=== PATIENT | male | born 1990 | race Caucasian/White ===

== ENCOUNTER 2016-12-25 17:48 | Emergency (ER) | payer SELFPAY ==
[~2016-12-25] VITALS: Ht 182.9 cm; Wt 106.0 kg
[~2016-12-25 17:48] MED LIST: ALBU1AER INH; IBUP800T23 PO; MMW SS; PENI500T PO
[2016-12-25 17:52] VITALS: BP 114/78; PULSE 70; RESP 16; TEMP 98.4; O2SAT 96
[2016-12-25] MEDS ORDERED: PRIL20CA9 PO (17:57)
--- NOTE | 2016-12-25 18:21 | PD ---
HPI Chief Complaint: ENT Complaint Time Seen by Provider: 18:20 Travel History International Travel<30 days: No Contact w/Intl Traveler<30days: No Traveled to known affect area: No History of Present Illness HPI 26-year-old male presents to the ED for evaluation of approximately 20 hour history of right ear pain. Onset upon waking today. Patient states that the pain radiates down the neck. He also states that he feels as if the ear is "hot." He endorses headache, similar to previous headaches. Denies vision changes, dizziness, nausea, vomiting. He drove himself to the emergency room today. States that he uses Q-tips daily. 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 SKIN: Warm and dry. HEAD: Normocephalic. Atraumatic. EYES: No scleral icterus. No injection or drainage. PERRLA. EOMI. ENT: Right side tug test positive. Right external canal erythematous, tender, scant exudates. Pearly riley tympanic membranes bilaterally. Nasal mucosa is moist. Oropharynx without erythema, edema or exudate. NECK: Supple, trachea midline. No JVD or lymphadenopathy. CARDIOVASCULAR: Regular rate and rhythm without murmurs, gallops, or rubs. No carotid bruits. 2+ DP and radial pulses bilaterally. RESPIRATORY: Breath sounds clear and equal bilaterally. No accessory muscle use. GASTROINTESTINAL: Abdomen soft, non-tender, nondistended. + Bowel sounds MUSCULOSKELETAL: No cyanosis, or edema. Full, active range of motion. Strength 5/5. Neurovascularly intact. BACK: Nontender without obvious deformity. No CVA tenderness. Data Data Last Documented VS Vital Signs Date Time Temp Pulse Resp B/P Pulse Ox O2 Delivery O2 Flow Rate FiO2 12/25/16 17:52 98.4 70 16 114/78 96 Orders Ibuprofen (Motrin) (12/25/16 18:30) MDM Medical Decision Making Medical Screen Exam Complete: Yes Emergency Medical Condition: Yes Differential Diagnosis Otitis media versus otitis externa versus foreign body versus other Narrative Course 26-year-old male presents to the ED for evaluation of approximately 20 hour history of right ear pain. Onset upon waking today. Patient states that the pain radiates down the neck. He also states that he feels as if the ear is "hot." He endorses headache, similar to previous headaches. Denies vision changes, dizziness, nausea, vomiting. He drove himself to the emergency room today. States that he uses Q-tips daily. Patient is afebrile on presentation. Physical exam reveals positive right sided tugged test, erythematous and exudative right external canal. There are pearly riley tympanic membranes bilaterally. Oropharynx without erythema, edema or exudate. No LAD. This is otitis externa. Patient was prescribed Cortisporin otic drops 4 times a day 7 days. He is instructed to continue treatment for 14 days should symptoms continue. He is cautioned not to put anything else in the ear. He indicated understanding of the instructions and is agreeable to the care plan. He is stable and discharged home. Diagnosis Primary Impression: Otitis externa of right ear Qualified Code: H60.501 - Acute otitis externa of right ear, unspecified type Referrals: Primary Care Physician Patient Instructions: General Instructions, Otitis Externa (ED) Additional Instructions: Rest, hydrate. Instill for antibiotic drops in the affected ear 4 times a day 7 days. If symptoms continue you may use the medication for a total of 14 days. To not insert anything else in the ear. Protect the ear from water. 800 mg ibuprofen up to 3 times a day as needed for continued pain. Follow-up primary care provider. Return to the ED for any urgent or emergent medical condition. Med/Other Pt SpecificInfo: Prescription(s) given Scripts Sobrjktt-Axfcwpqcf-MV Otic Drops (Cortisporin HC Otic Drops)3.5-10,000-1 Mg- Units-% Soln4 Drop RIGHT EAR QID 14 Days Ref 0 Prov:King Santiago MD 12/25/16 Disposition: 01 DISCHARGE HOME Condition: Stable Anny Arredondo Dec 25, 2016 18:20
[2016-12-25] MEDS ORDERED: CORT1SOL RIGHT EAR ×2 (18:28→18:35)
[2016-12-25] MEDS ORDERED: IBUPROFEN 800 MG TAB PO ONE (18:30)
== END 2016-12-25 18:48 | disposition home or self-care (01) ==
LOC: PHEFT 17:48
DX: H60.91 Unspecified otitis externa, right ear (principal); R51 Headache; K21.9 Gastro-esophageal reflux disease without esophagitis; F17.210 Nicotine dependence, cigarettes, uncomplicated
CPT/HCPCS: 99283

== ENCOUNTER 2017-03-06 14:18 | Emergency (ER) | payer MEDICAID ==
[~2017-03-06] VITALS: Ht 180.3 cm; Wt 104.7 kg
[~2017-03-06 14:18] MED LIST changes: -ALBU1AER INH; +CORT1SOL RIGHT EAR; -IBUP800T23 PO; -MMW SS; -PENI500T PO; +PRIL20CA9 PO
[2017-03-06 14:26] VITALS: BP 108/69; PULSE 93; RESP 20; TEMP 99.5; O2SAT 98
[2017-03-06] MEDS ORDERED: OMEP20TA PO (14:35)
[2017-03-06] MEDS ORDERED: PENI500T PO (15:01)
--- NOTE | 2017-03-06 15:02 | PD ---
HPI Chief Complaint: ENT Complaint Time Seen by Provider: 14:35 Travel History International Travel<30 days: No Contact w/Intl Traveler<30days: No Traveled to known affect area: No History of Present Illness HPI 26-year-old male presents emergency department for evaluation of sore throat, fever, body ache for one day. Patient reports he has history of tonsillitis. He reports his symptoms are similar to that. He denies fever or chills. He denies difficulty eating or drinking. He does have discomfort with swallowing. No change in voice. He reports pain is located within the throat, nonradiating, worse with swallowing, and relieved with OTC Tylenol, severity 4 out of 10. 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 SKIN: Focused skin assessment warm/dry. HEAD: Normocephalic. EYES: No scleral icterus. No injection or drainage. THROAT: Pharyngeal erythema, tonsillar swelling and exudate bilaterally. Uvula midline. NECK: Supple, trachea midline. No JVD or lymphadenopathy. CARDIOVASCULAR: Regular rate and rhythm without murmurs, gallops, or rubs. RESPIRATORY: Breath sounds equal bilaterally. No accessory muscle use. GASTROINTESTINAL: Abdomen soft, non-tender, nondistended. MUSCULOSKELETAL: No cyanosis, or edema. BACK: Nontender without obvious deformity. No CVA tenderness. Data Data Last Documented VS Vital Signs Date Time Temp Pulse Resp B/P Pulse Ox O2 Delivery O2 Flow Rate FiO2 03/06/17 14:26 99.5 93 20 108/69 98 MDM Medical Decision Making Medical Screen Exam Complete: Yes Emergency Medical Condition: Yes Differential Diagnosis Strep pharyngitis, viral pharyngitis, less likely or tonsillar abscess Narrative Course 26-year-old male present emergency department for evaluation of sore throat times one day. On exam patient is found to have exudative tonsillitis. Patient will be treated for strep. Diagnosis Primary Impression: Tonsillitis Referrals: Primary Care Physician Additional Instructions: Take antibiotics as prescribed. Stay well-hydrated by drinking plenty of fluids. Take [id number] Motrin as needed for pain. Scripts Penicillin V Potassium 500 Mg [id number] Mg PO Q12HR #20 TAB Prov:Kate Day 03/06/17 Disposition: 01 DISCHARGE HOME Condition: Stable Kate Day Mar 06, 2017 15:02
== END 2017-03-06 15:15 | disposition home or self-care (01) ==
LOC: PHEFT 14:18
DX: J03.90 Acute tonsillitis, unspecified (principal); K21.9 Gastro-esophageal reflux disease without esophagitis; B19.20 Unspecified viral hepatitis C without hepatic coma; F17.210 Nicotine dependence, cigarettes, uncomplicated
CPT/HCPCS: 99283

== ENCOUNTER 2017-03-08 11:06 | Emergency (ER) | payer MEDICAID ==
[~2017-03-08] VITALS: Ht 180.3 cm; Wt 102.0 kg
[~2017-03-08 11:06] MED LIST changes: -CORT1SOL RIGHT EAR; +OMEP20TA PO; +PENI500T PO; -PRIL20CA9 PO
[2017-03-08 11:08] VITALS: BP 114/73; PULSE 95; RESP 18; TEMP 98.9; O2SAT 98
[2017-03-08 12:57] VITALS: BP 137/72; PULSE 102; RESP 18; TEMP 100.5; O2SAT 98
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
[2017-03-08] MEDS ORDERED: LIDOCAINE VISCOUS 2% SOLN 15 ML UDC PO ONE (13:00)
[2017-03-08] MEDS ORDERED: DEXAMETHASONE SOD PHOS 20 MG/5 ML VIAL IM ONE (13:00)
[2017-03-08] MEDS ORDERED: PENICILLIN G BENZATHINE 2,400,000 UNITS/4 ML SYRINGE IM ONE (13:00)
[2017-03-08 13:02] VITALS: BP 137/72; PULSE 102; RESP 18; TEMP 100.5; O2SAT 98
[2017-03-08] MEDS ORDERED: PENICILLIN G BENZATHINE 1,200,000 UNITS/2 ML SYRINGE IM ONE (13:15)
[2017-03-08 14:29] VITALS: BP 121/71; TEMP 100.6
== END 2017-03-08 14:30 | disposition home or self-care (01) ==
LOC: PHED 11:06
DX: J02.9 Acute pharyngitis, unspecified (principal); B19.20 Unspecified viral hepatitis C without hepatic coma
CPT/HCPCS: 96372; 99284; J0561; J1100

== ENCOUNTER 2017-08-26 17:54 | Emergency (ER) | payer OTHER, MEDICAID ==
[~2017-08-26] VITALS: Ht 180.3 cm; Wt 110.0 kg
[~2017-08-26 17:54] MED LIST changes: -OMEP20TA PO; +OMEP20TA93 PO
[2017-08-26 18:18] VITALS: BP 137/83; PULSE 91; RESP 20; TEMP 98.4; O2SAT 98
[2017-08-26] MEDS ORDERED: MORPHINE SULFATE 4 MG/ML INJ IV PUSH ONE (18:30)
[2017-08-26] MEDS ORDERED: SODIUM CHLORIDE 0.9% FLUSH 10 ML FLUSH IVF PRN (18:30)
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
[2017-08-26] MEDS ORDERED: IOHEXOL 350 MG/ML 10 ML VIAL (for RAD DIAG) IVCONTRAST ONE (19:26)
[2017-08-26 19:29] VITALS: BP 129/75; PULSE 94; RESP 18; O2SAT 99
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
[2017-08-26] MEDS ORDERED: TRAM50 PO (19:58)
[2017-08-26] MEDS ORDERED: BACL10TA PO (19:58)
== END 2017-08-26 21:03 | disposition home or self-care (01) ==
LOC: NEPD 17:54
DX: S00.03XA Contusion of scalp, initial encounter (principal); S60.222A Contusion of left hand, initial encounter; S90.31XA Contusion of right foot, initial encounter; S80.812A Abrasion, left lower leg, initial encounter; S50.312A Abrasion of left elbow, initial encounter; K21.9 Gastro-esophageal reflux disease without esophagitis; F17.200 Nicotine dependence, unspecified, uncomplicated; Z86.19 Personal history of other infectious and parasitic diseases; V28.4XXA Motorcycle driver injured in noncollision transport accident in traffic accident, initial encounter
CPT/HCPCS: 70450; 71010; 72125; 72132; 73030; 73070; 73130; 73630; 74177; 86850; 86900; 86901; 96374; 99285; J2270; Q9967